=== PATIENT | male | born 1975 | race Caucasian/White ===

== ENCOUNTER 2016-10-01 00:26 | Emergency (ER) | payer OTHER ==
[~2016-10-01 00:26] MED LIST: CVS20TAB PO; LOSA50TA20 PO
--- NOTE | 2016-10-01 01:38 | EDDOCDS ---
Nurse's Notes [facility] Name: Spencer Dejesus Age: 41 yrs Sex: Male : 1975 Arrival Date: 10/01/2016 Time: 00:26 Bed I8 / 16 Private MD: Diagnosis: Diffuse otitis externa, left ear Presentation: 10/01 00:34 Presenting complaint: Patient states: Left ear pain that began 48 hours ago, pt. was lf1 seen in an ED in [place] an diagnosed with an ear infection and given Amoxicillin and CiproDex. Pt. reports that pain is worse today and feel completely swollen at this time. Decreased hearing out of left ear and swelling to neck just below ear. Adult Sepsis Screening: The patient does not have new or worsening altered mentation. Patient's respiratory rate is less than 22. Systolic blood pressure is greater than 100. Patient has a qSOFA score of 0- Negative Sepsis Screen. Suicide/Homicide risk assessment- the patient denies having any suicidal and/or homicidal ideations and does not present with any other emotional, behavioral or mental health complaints. Status: Patient is not a director agricultural services or dependent. Transition of care: patient was not received from another setting of care. 00:34 Acuity: MAGED Level 3 lf1 00:34 Method Of Arrival: Walkin/Carried/Asstd lf1 Triage Assessment: 00:40 General: Appears uncomfortable, Behavior is cooperative. Pain: Location: left ear and lf1 left jaw Pain currently is 8 out of 10 on a pain scale. Neurological: Level of Consciousness is awake, alert, Oriented to person, place, time. EENT: swelling to left ear. Respiratory: Respiratory effort is even, unlabored. GI: Denies nausea, vomiting. Historical: - Allergies: No known drug Allergies; - Home Meds: 1. Cozaar 10 mg Oral once daily for Hypertension 2. amoxicillin 500 mg Oral cap 3 times per day 3. Ciprodex ear drops four times a day - PMHx: Hypertension; - PSHx: left shoulder; - Social history: Smoking status: Patient states was never smoker of tobacco. No barriers to communication noted, The patient speaks fluent Lebanese, Speaks appropriately for age, Preferred Language: Lebanese. - Family history: No immediate family members are acutely ill. - : The pt / caregiver states he / she is not on anticoagulants. Home medication list is obtained from the patient. - Exposure Risk Screening:: None identified. Screenin:35 Screening information is obtained from the patient. Fall risk: No risks identified. mv5 Assistance ADL's: requires no assistance with activities of daily living. Abuse/DV Screen: The patient / caregiver reports he/she is: not in a situation that causes fear, pain or injury. Nutritional screening: No deficits noted. Advance Directives: There is no active DNR order. home support is adequate. Assessment: 01:27 General: Appears uncomfortable, Behavior is cooperative, pleasant. mv5 01:35 Pain: Location: left ear. Cardiovascular: No deficits noted. Respiratory: No deficits mv5 noted. Derm: Skin is pink, warm & dry. Vital Signs: 00:33 BP 172 / 85; Pulse 116; Resp 18; Temp 100.0(O); Pulse Ox 98% on R/A; Weight 111.13 kg lf1 (R); Height 6 ft. 5 in. (195.58 cm) (R); Pain 8/10; 00:33 Body Mass Index 29.05 (111.13 kg, 195.58 cm) 1 Vitals: 00:33 Log In Time: October 01, 2016 at 00:27. lf1 ED Course: 00:28 Patient visited by Arpita Woody. jp5 00:28 Patient moved to Waiting jp5 00:31 Patient moved to Triage 2 lf1 00:32 Patient visited by Luz Malhotra,PRASHANT. lf1 00:38 Triage Initiated lf1 00:42 Kathia Hernandez,PRASHANT is Primary Nurse. lf1 00:42 Patient moved to 9 lf1 00:43 Primary Nurse role handed off by Kathia Hernandez RN cf2 00:43 Sena Harding,RN is Primary Nurse. cf2 00:43 Patient visited by Sena Harding,PRASHANT. cf2 00:43 Patient moved to I8 / 16 cz 00:44 Sena Harding,PRASHANT is Primary Nurse. cf2 00:44 Patient visited by Sena Harding,PRASHANT. cf2 00:45 Chaparrita Hood MD is Attending Physician. fg 00:45 Patient visited by Chaparrita Hood MD. fg 01:04 Kody Dorsey is Referral Physician. fg 01:04 Little, Jorge L Trivedi is Referral Physician. fg 01:16 Marina Padron,RN is Primary Nurse. mv5 01:33 [facility] Payment Agreement was scanned into [employer] and attached to record. hs2 01:35 The patient / caregiver is instructed regarding the plan of care and ED course. mv5 01:35 No IV's were initiated during this patient's visit. No procedures done that require mv5 assistance. Administered Medications: 01:22 Not Given (med unavailablee): Antipyrine-Benzocaine Drops 5.4 %-1.4 % 2 drps Otic in mv5 left ear once Order Results: There are currently no results for this order. Outcome: 01:05 Discharge ordered by Provider. fg 01:35 Discharge Assessment: Patient awake, alert and oriented x 3. No cognitive and/or mv5 functional deficits noted. Patient verbalized understanding of disposition instructions. patient administered narcotics - no. The following High Risk Discharge criteria are identified: None. Condition: stable. Discharge instructions given to patient, Demonstrated understanding of Pt was receptive of discharge instructions/ teaching. Prescriptions given X 1. No special radiology studies were completed. Property sent home with patient. 01:37 Patient left the ED. mv5 Signatures: Darrell Ariza, RN RN Luz Burgess,RN RN lf1 Arpita Woody 5 Chaparrita Hood MD MD fg Stanton, Hillary, [facility] Reg hs2 Sena Harding,RN RN 2 Marina Padron,RN RN mv5 MTDD
--- NOTE | 2016-10-01 01:38 | EDDOCDS ---
Physician Documentation [facility] Name: Spencer Dejesus Age: 41 yrs Sex: Male : 1975 Arrival Date: 10/01/2016 Time: 00:26 Bed I8 / 16 Private MD: Disposition: 10/01/16 01:05 Discharged to Home/Self Care. Impression: Diffuse otitis externa, left ear. - Condition is Stable. - Discharge Instructions: Otitis Externa, [id number]. - Prescriptions for Cipro 500 mg Oral Tablet - take 1 tablet by ORAL route every 12 hours; 14 tablet. - Medication Reconciliation, Local Pharmacy Hours form. - Follow up: Kody Dorsey; When: Call to arrange an appointment; Reason: Continuance of care. Follow up: Jorge L Little; When: Call to arrange an appointment; Reason: Continuance of care. - Problem is an ongoing problem. - Symptoms are unchanged. Historical: - Allergies: No known drug Allergies; - Home Meds: 1. Cozaar 10 mg Oral once daily for Hypertension 2. amoxicillin 500 mg Oral cap 3 times per day 3. Ciprodex ear drops four times a day - PMHx: Hypertension; - PSHx: left shoulder; - Social history: Smoking status: Patient states was never smoker of tobacco. No barriers to communication noted, The patient speaks fluent Turkish, Speaks appropriately for age, Preferred Language: Turkish. - Family history: No immediate family members are acutely ill. - : The pt / caregiver states he / she is not on anticoagulants. Home medication list is obtained from the patient. - Exposure Risk Screening:: None identified. Vital Signs: 10/01 00:33 BP 172 / 85; Pulse 116; Resp 18; Temp 100.0(O); Pulse Ox 98% on R/A; Weight 111.13 kg / lf1 245 lbs (R); Height 6 ft. 5 in. (195.58 cm) (R); Pain 8/10; 00:33 Body Mass Index 29.05 (111.13 kg, 195.58 cm) lf1 MDM: 01:03 Antipyrine-Benzocaine Drops 5.4 %-1.4 % 2 drps Otic in left ear once ordered. fg 01:14 Financial registration complete. hs2 01:33 [facility] Payment Agreement was scanned into [employer] and attached to record. hs2 Administered Medications: 01:22 Not Given (med unavailablee): Antipyrine-Benzocaine Drops 5.4 %-1.4 % 2 drps Otic in mv5 left ear once Signatures: Luz Malhotra,RN RN lf1 Chaparrita Hood MD MD Sarah Shaffer, Reg Reg hs2 Marina PadronRN RN mv5 The chart was reviewed and I authenticate all verbal orders and agree with the evaluation and treatment provided.Corrections: (The following items were deleted from the chart) 01:30 01:03 Misc. Nursing Order ordered. fg cz Attachments: 01:33 [facility] [place] Agreement hs2 MTDD
--- NOTE | 2016-10-03 02:38 | EDDOCDS ---
Physician Documentation [facility] Name: Spencer Dejesus Age: 41 yrs Sex: Male : 1975 Arrival Date: 10/01/2016 Time: 00:26 Bed I8 / 16 Private MD: Disposition: 10/01/16 01:05 Discharged to Home/Self Care. Impression: Diffuse otitis externa, left ear. - Condition is Stable. - Discharge Instructions: Otitis Externa, [id number]. - Prescriptions for Cipro 500 mg Oral Tablet - take 1 tablet by ORAL route every 12 hours; 14 tablet. - Medication Reconciliation, Local Pharmacy Hours form. - Follow up: Kody Dorsey; When: Call to arrange an appointment; Reason: Continuance of care. Follow up: Jorge L Little; When: Call to arrange an appointment; Reason: Continuance of care. - Problem is an ongoing problem. - Symptoms are unchanged. Historical: - Allergies: No known drug Allergies; - Home Meds: 1. Cozaar 10 mg Oral once daily for Hypertension 2. amoxicillin 500 mg Oral cap 3 times per day 3. Ciprodex ear drops four times a day - PMHx: Hypertension; - PSHx: left shoulder; - Social history: Smoking status: Patient states was never smoker of tobacco. No barriers to communication noted, The patient speaks fluent Belarusian, Speaks appropriately for age, Preferred Language: Belarusian. - Family history: No immediate family members are acutely ill. - : The pt / caregiver states he / she is not on anticoagulants. Home medication list is obtained from the patient. - Exposure Risk Screening:: None identified. Vital Signs: 10/01 00:33 BP 172 / 85; Pulse 116; Resp 18; Temp 100.0(O); Pulse Ox 98% on R/A; Weight 111.13 kg / lf1 245 lbs (R); Height 6 ft. 5 in. (195.58 cm) (R); Pain 8/10; 00:33 Body Mass Index 29.05 (111.13 kg, 195.58 cm) lf1 MDM: 01:03 Antipyrine-Benzocaine Drops 5.4 %-1.4 % 2 drps Otic in left ear once ordered. fg 01:14 Financial registration complete. hs2 01:33 COUNTS INCLUDE 234 BEDS AT THE [facility] Payment Agreement was scanned into [employer] and attached to record. hs2 21:31 T-Sheet-- Draft Copy was scanned into [employer] and attached to record. klr Administered Medications: :22 Not Given (med unavailablee): Antipyrine-Benzocaine Drops 5.4 %-1.4 % 2 drps Otic in mv5 left ear once Signatures: Luz MalhotraRN RN lf1 Chaparrita Hood MD MD Sarah Shaffer, Reg Reg hs2 Ratna Camarena klr Marina Padron,RN RN mv5 The chart was reviewed and I authenticate all verbal orders and agree with the evaluation and treatment provided.Corrections: (The following items were deleted from the chart) 01:30 01:03 Misc. Nursing Order ordered. octavio cz Attachments: 01:33 COUNTS INCLUDE 234 BEDS AT THE [facility] Payment Agreement hs2 21:31 T-Sheet-- Draft Copy klr Chart Complete MTDD
--- NOTE | 2016-10-03 02:38 | EDDOCDS ---
Nurse's Notes [facility] Name: Spencer Dejesus Age: 41 yrs Sex: Male : 1975 Arrival Date: 10/01/2016 Time: 00:26 Bed I8 / 16 Private MD: Diagnosis: Diffuse otitis externa, left ear Presentation: 10/01 00:34 Presenting complaint: Patient states: Left ear pain that began 48 hours ago, pt. was lf1 seen in an ED in [place] an diagnosed with an ear infection and given Amoxicillin and CiproDex. Pt. reports that pain is worse today and feel completely swollen at this time. Decreased hearing out of left ear and swelling to neck just below ear. Adult Sepsis Screening: The patient does not have new or worsening altered mentation. Patient's respiratory rate is less than 22. Systolic blood pressure is greater than 100. Patient has a qSOFA score of 0- Negative Sepsis Screen. Suicide/Homicide risk assessment- the patient denies having any suicidal and/or homicidal ideations and does not present with any other emotional, behavioral or mental health complaints. Status: Patient is not a business services intern or dependent. Transition of care: patient was not received from another setting of care. 00:34 Acuity: MAGED Level 3 lf1 00:34 Method Of Arrival: Walkin/Carried/Asstd lf1 Triage Assessment: 00:40 General: Appears uncomfortable, Behavior is cooperative. Pain: Location: left ear and lf1 left jaw Pain currently is 8 out of 10 on a pain scale. Neurological: Level of Consciousness is awake, alert, Oriented to person, place, time. EENT: swelling to left ear. Respiratory: Respiratory effort is even, unlabored. GI: Denies nausea, vomiting. Historical: - Allergies: No known drug Allergies; - Home Meds: 1. Cozaar 10 mg Oral once daily for Hypertension 2. amoxicillin 500 mg Oral cap 3 times per day 3. Ciprodex ear drops four times a day - PMHx: Hypertension; - PSHx: left shoulder; - Social history: Smoking status: Patient states was never smoker of tobacco. No barriers to communication noted, The patient speaks fluent Sierra Leonean, Speaks appropriately for age, Preferred Language: Sierra Leonean. - Family history: No immediate family members are acutely ill. - : The pt / caregiver states he / she is not on anticoagulants. Home medication list is obtained from the patient. - Exposure Risk Screening:: None identified. Screenin:35 Screening information is obtained from the patient. Fall risk: No risks identified. mv5 Assistance ADL's: requires no assistance with activities of daily living. Abuse/DV Screen: The patient / caregiver reports he/she is: not in a situation that causes fear, pain or injury. Nutritional screening: No deficits noted. Advance Directives: There is no active DNR order. home support is adequate. Assessment: 01:27 General: Appears uncomfortable, Behavior is cooperative, pleasant. mv5 01:35 Pain: Location: left ear. Cardiovascular: No deficits noted. Respiratory: No deficits mv5 noted. Derm: Skin is pink, warm & dry. Vital Signs: 00:33 BP 172 / 85; Pulse 116; Resp 18; Temp 100.0(O); Pulse Ox 98% on R/A; Weight 111.13 kg lf1 (R); Height 6 ft. 5 in. (195.58 cm) (R); Pain 8/10; 00:33 Body Mass Index 29.05 (111.13 kg, 195.58 cm) 1 Vitals: 00:33 Log In Time: October 01, 2016 at 00:27. lf1 ED Course: 00:28 Patient visited by Arpita Woody. jp5 00:28 Patient moved to Waiting jp5 00:31 Patient moved to Triage 2 lf1 00:32 Patient visited by Luz Malhotra,PRASHANT. lf1 00:38 Triage Initiated lf1 00:42 Kathia Hernandez,PRASHANT is Primary Nurse. lf1 00:42 Patient moved to 9 lf1 00:43 Primary Nurse role handed off by Kathia Hernandez RN cf2 00:43 Sena Harding,RN is Primary Nurse. cf2 00:43 Patient visited by Sena Harding,PRASHANT. cf2 00:43 Patient moved to I8 / 16 cz 00:44 Sena Harding,PRASHANT is Primary Nurse. cf2 00:44 Patient visited by Sena Harding,PRASHANT. cf2 00:45 Chaparrita Hood MD is Attending Physician. fg 00:45 Patient visited by Chaparrita Hood MD. fg 01:04 Kody Dorsey is Referral Physician. fg 01:04 Ovi Littleed Kylejose alfredo Trivedi is Referral Physician. fg 01:16 Marina Padron,RN is Primary Nurse. mv5 01:33 [facility] Payment Agreement was scanned into [employer] and attached to record. hs2 01:35 The patient / caregiver is instructed regarding the plan of care and ED course. mv5 01:35 No IV's were initiated during this patient's visit. No procedures done that require mv5 assistance. 21:31 T-Sheet-- Draft Copy was scanned into [employer] and attached to record. klr Administered Medications: 01:22 Not Given (med unavailablee): Antipyrine-Benzocaine Drops 5.4 %-1.4 % 2 drps Otic in mv5 left ear once Order Results: There are currently no results for this order. Outcome: 01:05 Discharge ordered by Provider. fg 01:35 Discharge Assessment: Patient awake, alert and oriented x 3. No cognitive and/or mv5 functional deficits noted. Patient verbalized understanding of disposition instructions. patient administered narcotics - no. The following High Risk Discharge criteria are identified: None. Condition: stable. Discharge instructions given to patient, Demonstrated understanding of Pt was receptive of discharge instructions/ teaching. Prescriptions given X 1. No special radiology studies were completed. Property sent home with patient. 01:37 Patient left the ED. mv5 Signatures: Darrell Ariza, RN RN Luz Malhotra,RN RN lf1 Arpita Woody jp5 Chaparrita Hood MD MD Sarah Shaffer, Reg Reg hs2 Ratna Camarena r Sena Harding,RN RN 2 Marina Padron,RN RN mv5 Chart Complete MTDD
--- NOTE | 2016-10-03 02:38 | EDDOCDS ---
Physician Documentation [facility] Name: Spencer Dejesus Age: 41 yrs Sex: Male : 1975 Arrival Date: 10/01/2016 Time: 00:26 Bed I8 / 16 Private MD: Disposition: 10/01/16 01:05 Discharged to Home/Self Care. Impression: Diffuse otitis externa, left ear. - Condition is Stable. - Discharge Instructions: Otitis Externa, [id number]. - Prescriptions for Cipro 500 mg Oral Tablet - take 1 tablet by ORAL route every 12 hours; 14 tablet. - Medication Reconciliation, Local Pharmacy Hours form. - Follow up: Kody Dorsey; When: Call to arrange an appointment; Reason: Continuance of care. Follow up: Jorge L Little; When: Call to arrange an appointment; Reason: Continuance of care. - Problem is an ongoing problem. - Symptoms are unchanged. Historical: - Allergies: No known drug Allergies; - Home Meds: 1. Cozaar 10 mg Oral once daily for Hypertension 2. amoxicillin 500 mg Oral cap 3 times per day 3. Ciprodex ear drops four times a day - PMHx: Hypertension; - PSHx: left shoulder; - Social history: Smoking status: Patient states was never smoker of tobacco. No barriers to communication noted, The patient speaks fluent Greek, Speaks appropriately for age, Preferred Language: Greek. - Family history: No immediate family members are acutely ill. - : The pt / caregiver states he / she is not on anticoagulants. Home medication list is obtained from the patient. - Exposure Risk Screening:: None identified. Vital Signs: 10/01 00:33 BP 172 / 85; Pulse 116; Resp 18; Temp 100.0(O); Pulse Ox 98% on R/A; Weight 111.13 kg / lf1 245 lbs (R); Height 6 ft. 5 in. (195.58 cm) (R); Pain 8/10; 00:33 Body Mass Index 29.05 (111.13 kg, 195.58 cm) lf1 MDM: 01:03 Antipyrine-Benzocaine Drops 5.4 %-1.4 % 2 drps Otic in left ear once ordered. fg 01:14 Financial registration complete. hs2 01:33 [facility] Payment Agreement was scanned into [employer] and attached to record. hs2 21:31 T-Sheet-- Draft Copy was scanned into [employer] and attached to record. klr Administered Medications: :22 Not Given (med unavailablee): Antipyrine-Benzocaine Drops 5.4 %-1.4 % 2 drps Otic in mv5 left ear once Signatures: Luz MalhotraRN RN lf1 Chaparrita Hood MD MD Sarah Shaffer, Reg Reg hs2 Ratna Camarena klr Marina Padron,RN RN mv5 The chart was reviewed and I authenticate all verbal orders and agree with the evaluation and treatment provided.Corrections: (The following items were deleted from the chart) 01:30 01:03 Misc. Nursing Order ordered. octavio cz Attachments: 01:33 [facility] Payment Agreement hs2 21:31 T-Sheet-- Draft Copy klr Chart Complete MTDD
== END 2016-10-01 01:37 | disposition home or self-care (01) ==
LOC: M ED 00:26
DX: H60.90 Unspecified otitis externa, unspecified ear (principal); I10 Essential (primary) hypertension; Z79.899 Other long term (current) drug therapy

== ENCOUNTER 2016-10-02 20:01 | Emergency (ER) | payer OTHER ==
--- NOTE | 2016-10-02 20:59 | EDDOCDS ---
Nurse's Notes [facility] Name: Spencer Dejesus Age: 41 yrs Sex: Male : 1975 Arrival Date: 10/02/2016 Time: 20:01 Bed TR7 Private MD: Jorge L Little Diagnosis: Acute actinic otitis externa, left ear Presentation: 10/02 20:09 Presenting complaint: Patient states: Seen here 2 days ago for ear infection. Unable to jo3 get drops in ear due to swelling. Adult Sepsis Screening: The patient does not have new or worsening altered mentation. Patient's respiratory rate is less than 22. Systolic blood pressure is greater than 100. Patient has a qSOFA score of 0- Negative Sepsis Screen. Suicide/Homicide risk assessment- the patient denies having any suicidal and/or homicidal ideations and does not present with any other emotional, behavioral or mental health complaints. Status: Patient is not a certified appliance service technician or dependent. Transition of care: patient was not received from another setting of care. 20:09 Acuity: MAGED Level 4 jo3 20:09 Method Of Arrival: Walkin/Carried/Asstd jo3 Triage Assessment: 20:12 General: Appears in no apparent distress, comfortable, Behavior is appropriate for age, jo3 cooperative, pleasant. Pain: Pain currently is 6 out of 10 on a pain scale. At worst was 8 out of 10 on a pain scale. HIV screening NA for this visit Offered previously. Neurological: Level of Consciousness is awake, alert, Oriented to person, place, time. Respiratory: Airway is patent Respiratory effort is even, unlabored. Derm: Skin is pink, warm & dry. Historical: - Allergies: No known drug Allergies; - Home Meds: 1. ciprodex ear drops four times a day 2. Cozaar 10 mg Oral once daily for Hypertension 3. Cipro 500 mg Oral tab 1 tab every 12 hours - PMHx: Hypertension; - PSHx: left shoulder; - Social history: Smoking status: Patient states was never smoker of tobacco. No barriers to communication noted, The patient speaks fluent Afghan, Speaks appropriately for age. - Family history: No immediate family members are acutely ill. - : The pt / caregiver states he / she is not on anticoagulants. Home medication list is obtained from the patient. - Exposure Risk Screening:: None identified. Screenin:57 Screening information is obtained from the patient. Fall risk: No risks identified. mb9 Assistance ADL's: requires no assistance with activities of daily living. Abuse/DV Screen: The patient / caregiver reports he/she is: not in a situation that causes fear, pain or injury. Nutritional screening: No deficits noted. Advance Directives: There is no active DNR order. home support is adequate. Assessment: 20:52 General: Appears in no apparent distress, Behavior is appropriate for age, cooperative. mb9 Respiratory: Airway is patent Respiratory effort is even, unlabored. Vital Signs: 20:03 BP 154 / 97; Pulse 96; Resp 18; Temp 98.4; Pulse Ox 96% ; Weight 111.13 kg; Height 6 jlm ft. 5 in. (195.58 cm); Pain 8/10; 20:03 Body Mass Index 29.05 (111.13 kg, 195.58 cm) [facility] Vitals: 20:03 Log In Time: October 02, 2016 at 20:03. [facility] ED Course: 20:02 Patient visited by Nickie Franco, Housing Case Manager. [facility] 20:02 Jorge L Little is Private Physician. jl 20:02 Patient moved to Waiting jl 20:04 Patient moved to Pre RCE jlm 20:11 Triage Initiated jo3 20:13 Patient visited by Kathryn Sharma,PRASHANT. jo3 20:21 [facility] ke 20:21 Patient visited by Wero Gilbert FNP. ke 20:21 Patient visited by Wero Gilbert FNP. ke 20:21 Patient moved to I10 / 23 km 20:29 Jorge L Little is Referral Physician. ke 20:52 Patient moved to TR7 mb9 20:53 [facility] Payment Agreement was scanned into [employer] and attached to record. kf3 20:57 The patient / caregiver is instructed regarding the plan of care and ED course. mb9 20:57 No IV's were initiated during this patient's visit. No procedures done that require mb9 assistance. Order Results: There are currently no results for this order. Outcome: 20:29 Discharge ordered by Provider. ke 20:57 Discharge Assessment: Patient awake, alert and oriented x 3. No cognitive and/or mb9 functional deficits noted. Patient verbalized understanding of disposition instructions. patient administered narcotics - no. The following High Risk Discharge criteria are identified: None. Discharged to home ambulatory. Condition: good Condition: stable Condition: improved. Discharge instructions given to patient, Instructed on discharge instructions, follow up and referral plans. medication usage, Demonstrated understanding of instructions, medications, Patient was not receptive of discharge instructions. Prescriptions given X. No special radiology studies were completed. Property :Personal belongings accompany Pt. 20:58 Patient left the ED. mb9 Signatures: Fabi Valle, RN RN kmg1 Wero Gilbert, INSTRUCTOR MODELING INSTRUCTOR MODELING Kathryn ValeraRN RN jo3 Wily Gonzalez, Reg Reg kf3 Nickie Franco, Housing Case Manager Unit Que Morrell,RN RN mb9 [facility]
--- NOTE | 2016-10-02 20:59 | EDDOCDS ---
Physician Documentation [facility] Name: Spencer Dejesus Age: 41 yrs Sex: Male : 1975 Arrival Date: 10/02/2016 Time: 20:01 Bed TR7 Private MD: Jorge L Little Disposition: 10/02/16 20:29 Discharged to Home/Self Care. Impression: Acute actinic otitis externa, left ear. - Condition is Stable. - Discharge Instructions: Ear Drops, Adult, Otitis Externa. - Medication Reconciliation, Local Pharmacy Hours form. - Follow up: Jorge L Little; When: 4 - 5 days; Reason: Recheck today's complaints, Continuance of care. - Problem is an ongoing problem. - Symptoms are unchanged. Historical: - Allergies: No known drug Allergies; - Home Meds: 1. ciprodex ear drops four times a day 2. Cozaar 10 mg Oral once daily for Hypertension 3. Cipro 500 mg Oral tab 1 tab every 12 hours - PMHx: Hypertension; - PSHx: left shoulder; - Social history: Smoking status: Patient states was never smoker of tobacco. No barriers to communication noted, The patient speaks fluent Malay, Speaks appropriately for age. - Family history: No immediate family members are acutely ill. - : The pt / caregiver states he / she is not on anticoagulants. Home medication list is obtained from the patient. - Exposure Risk Screening:: None identified. Vital Signs: 10/02 20:03 BP 154 / 97; Pulse 96; Resp 18; Temp 98.4; Pulse Ox 96% ; Weight 111.13 kg / 245 lbs; jlm Height 6 ft. 5 in. (195.58 cm); Pain 8/10; 20:03 Body Mass Index 29.05 (111.13 kg, 195.58 cm) [facility] MDM: 20:41 Financial registration complete. kf3 20:53 [facility] Payment Agreement was scanned into [employer] and attached to record. kf3 Signatures: Wero Gilbert, SERVICE PLANNER SERVICE PLANNER Kathryn ValeraRN RN jo3 Wily Gonzalez, Reg Reg kf3 Que Pena,RN RN mb9 The chart was reviewed and I authenticate all verbal orders and agree with the evaluation and treatment provided.Attachments: 20:53 [facility] Payment Agreement kf3 MTDD
--- NOTE | 2016-10-04 21:58 | EDDOCDS ---
Physician Documentation [facility] Name: Spencer Dejesus Age: 41 yrs Sex: Male : 1975 Arrival Date: 10/02/2016 Time: 20:01 Bed TR7 Private MD: Jorge L Little Disposition: 10/02/16 20:29 Discharged to Home/Self Care. Impression: Acute actinic otitis externa, left ear. - Condition is Stable. - Discharge Instructions: Ear Drops, Adult, Otitis Externa. - Medication Reconciliation, Local Pharmacy Hours form. - Follow up: Jorge L Little; When: 4 - 5 days; Reason: Recheck today's complaints, Continuance of care. - Problem is an ongoing problem. - Symptoms are unchanged. Historical: - Allergies: No known drug Allergies; - Home Meds: 1. ciprodex ear drops four times a day 2. Cozaar 10 mg Oral once daily for Hypertension 3. Cipro 500 mg Oral tab 1 tab every 12 hours - PMHx: Hypertension; - PSHx: left shoulder; - Social history: Smoking status: Patient states was never smoker of tobacco. No barriers to communication noted, The patient speaks fluent Thai, Speaks appropriately for age. - Family history: No immediate family members are acutely ill. - : The pt / caregiver states he / she is not on anticoagulants. Home medication list is obtained from the patient. - Exposure Risk Screening:: None identified. Vital Signs: 10/02 20:03 BP 154 / 97; Pulse 96; Resp 18; Temp 98.4; Pulse Ox 96% ; Weight 111.13 kg / 245 lbs; jlm Height 6 ft. 5 in. (195.58 cm); Pain 8/10; 20:03 Body Mass Index 29.05 (111.13 kg, 195.58 cm) jl MDM: 20:41 Financial registration complete. kf3 20:53 [facility] Payment Agreement was scanned into [employer] and attached to record. 10/03 08:57 T-Sheet-- Draft Copy was scanned into [employer] and attached to record. [facility] Signatures: Wero Gilbert, LIVE STUDY MANAGER LIVE STUDY MANAGER Kathryn ValeraRN RN jo3 Wily Gonzalez, Reg Reg kf3 Que Pena RN RN mb9 Helga Petit The chart was reviewed and I authenticate all verbal orders and agree with the evaluation and treatment provided.Attachments: 10/02 20:53 [facility] Payment Agreement kf3 10/03 08:57 T-Sheet-- Draft Copy [facility] Chart Complete MTDD
--- NOTE | 2016-10-04 21:58 | EDDOCDS ---
Physician Documentation [facility] Name: Spencer Dejesus Age: 41 yrs Sex: Male : 1975 Arrival Date: 10/02/2016 Time: 20:01 Bed TR7 Private MD: Jorge L Little Disposition: 10/02/16 20:29 Discharged to Home/Self Care. Impression: Acute actinic otitis externa, left ear. - Condition is Stable. - Discharge Instructions: Ear Drops, Adult, Otitis Externa. - Medication Reconciliation, Local Pharmacy Hours form. - Follow up: Jorge L Little; When: 4 - 5 days; Reason: Recheck today's complaints, Continuance of care. - Problem is an ongoing problem. - Symptoms are unchanged. Historical: - Allergies: No known drug Allergies; - Home Meds: 1. ciprodex ear drops four times a day 2. Cozaar 10 mg Oral once daily for Hypertension 3. Cipro 500 mg Oral tab 1 tab every 12 hours - PMHx: Hypertension; - PSHx: left shoulder; - Social history: Smoking status: Patient states was never smoker of tobacco. No barriers to communication noted, The patient speaks fluent Kinyarwanda, Speaks appropriately for age. - Family history: No immediate family members are acutely ill. - : The pt / caregiver states he / she is not on anticoagulants. Home medication list is obtained from the patient. - Exposure Risk Screening:: None identified. Vital Signs: 10/02 20:03 BP 154 / 97; Pulse 96; Resp 18; Temp 98.4; Pulse Ox 96% ; Weight 111.13 kg / 245 lbs; jlm Height 6 ft. 5 in. (195.58 cm); Pain 8/10; 20:03 Body Mass Index 29.05 (111.13 kg, 195.58 cm) jl MDM: 20:41 Financial registration complete. kf3 20:53 [facility] Payment Agreement was scanned into [employer] and attached to record. 10/03 08:57 T-Sheet-- Draft Copy was scanned into [employer] and attached to record. [facility] Signatures: Wero Gilbert, SURGICAL DEVICE SALES REPRESENTATIVE SURGICAL DEVICE SALES REPRESENTATIVE Kathryn ValeraRN RN jo3 Wily Gonzalez, Reg Reg kf3 Que Pena RN RN mb9 Helga Petit The chart was reviewed and I authenticate all verbal orders and agree with the evaluation and treatment provided.Attachments: 10/02 20:53 [facility] Payment Agreement kf3 10/03 08:57 T-Sheet-- Draft Copy [facility] Chart Complete MTDD
--- NOTE | 2016-10-04 21:58 | EDDOCDS ---
Nurse's Notes [facility] Name: Spencer Dejesus Age: 41 yrs Sex: Male : 1975 Arrival Date: 10/02/2016 Time: 20:01 Bed TR7 Private MD: Jorge L Little Diagnosis: Acute actinic otitis externa, left ear Presentation: 10/02 20:09 Presenting complaint: Patient states: Seen here 2 days ago for ear infection. Unable to jo3 get drops in ear due to swelling. Adult Sepsis Screening: The patient does not have new or worsening altered mentation. Patient's respiratory rate is less than 22. Systolic blood pressure is greater than 100. Patient has a qSOFA score of 0- Negative Sepsis Screen. Suicide/Homicide risk assessment- the patient denies having any suicidal and/or homicidal ideations and does not present with any other emotional, behavioral or mental health complaints. Status: Patient is not a supervisor home restoration service or dependent. Transition of care: patient was not received from another setting of care. 20:09 Acuity: MAGED Level 4 jo3 20:09 Method Of Arrival: Walkin/Carried/Asstd jo3 Triage Assessment: 20:12 General: Appears in no apparent distress, comfortable, Behavior is appropriate for age, jo3 cooperative, pleasant. Pain: Pain currently is 6 out of 10 on a pain scale. At worst was 8 out of 10 on a pain scale. HIV screening NA for this visit Offered previously. Neurological: Level of Consciousness is awake, alert, Oriented to person, place, time. Respiratory: Airway is patent Respiratory effort is even, unlabored. Derm: Skin is pink, warm & dry. Historical: - Allergies: No known drug Allergies; - Home Meds: 1. ciprodex ear drops four times a day 2. Cozaar 10 mg Oral once daily for Hypertension 3. Cipro 500 mg Oral tab 1 tab every 12 hours - PMHx: Hypertension; - PSHx: left shoulder; - Social history: Smoking status: Patient states was never smoker of tobacco. No barriers to communication noted, The patient speaks fluent Georgian, Speaks appropriately for age. - Family history: No immediate family members are acutely ill. - : The pt / caregiver states he / she is not on anticoagulants. Home medication list is obtained from the patient. - Exposure Risk Screening:: None identified. Screenin:57 Screening information is obtained from the patient. Fall risk: No risks identified. mb9 Assistance ADL's: requires no assistance with activities of daily living. Abuse/DV Screen: The patient / caregiver reports he/she is: not in a situation that causes fear, pain or injury. Nutritional screening: No deficits noted. Advance Directives: There is no active DNR order. home support is adequate. Assessment: 20:52 General: Appears in no apparent distress, Behavior is appropriate for age, cooperative. mb9 Respiratory: Airway is patent Respiratory effort is even, unlabored. Vital Signs: 20:03 BP 154 / 97; Pulse 96; Resp 18; Temp 98.4; Pulse Ox 96% ; Weight 111.13 kg; Height 6 jlm ft. 5 in. (195.58 cm); Pain 8/10; 20:03 Body Mass Index 29.05 (111.13 kg, 195.58 cm) [facility] Vitals: 20:03 Log In Time: October 02, 2016 at 20:03. [facility] ED Course: 20:02 Patient visited by Nickie Franco, Assisted Living Coordinator. [facility] 20:02 Jorge L Little is Private Physician. jl 20:02 Patient moved to Waiting jlm 20:04 Patient moved to Pre RCE jlm 20:11 Triage Initiated jo3 20:13 Patient visited by Kathryn Sharma,PRASHANT. jo3 20:21 [facility] ke 20:21 Patient visited by Wero Gilbert FNP. ke 20:21 Patient visited by Wero Gilbert FNP. ke 20:21 Patient moved to I10 / 23 km 20:29 Jorge L Little is Referral Physician. ke 20:52 Patient moved to TR7 mb9 20:53 [facility] [place] Agreement was scanned into quitchen and attached to record. kf3 20:57 The patient / caregiver is instructed regarding the plan of care and ED course. mb9 20:57 No IV's were initiated during this patient's visit. No procedures done that require mb9 assistance. 10/03 08:57 T-Sheet-- Draft Copy was scanned into quitchen and attached to record. [facility] Order Results: There are currently no results for this order. Outcome: 10/02 20:29 Discharge ordered by Provider. blake 20:57 Discharge Assessment: Patient awake, alert and oriented x 3. No cognitive and/or mb9 functional deficits noted. Patient verbalized understanding of disposition instructions. patient administered narcotics - no. The following High Risk Discharge criteria are identified: None. Discharged to home ambulatory. Condition: good Condition: stable Condition: improved. Discharge instructions given to patient, Instructed on discharge instructions, follow up and referral plans. medication usage, Demonstrated understanding of instructions, medications, Patient was not receptive of discharge instructions. Prescriptions given X. No special radiology studies were completed. Property :Personal belongings accompany Pt. 20:58 Patient left the ED. mb9 Signatures: Fabi Valle, RN RN kmg1 Wero Gilbert, GOLF CLUB WEIGHTER GOLF CLUB WEIGHTER Kathryn Valera,RN RN jo3 Wily Gonzalez, Reg Reg kf3 Nickie Franco, Assisted Living Coordinator Unit Que Morrell RN RN mb9 Helga Petit Chart Complete [facility]
== END 2016-10-02 20:58 | disposition home or self-care (01) ==
LOC: M ED 20:01
DX: H60.12 Cellulitis of left external ear (principal); I10 Essential (primary) hypertension; Z79.899 Other long term (current) drug therapy

== ENCOUNTER → 2017-03-04 | Outpatient (CLI) | payer OTHER ==
[~2017-03-04] MED LIST changes: +AMOX500C PO; +PRED20TA PO
--- NOTE | 2017-03-04 07:22 | REP ---
Clinical: Hypertension . Comparison: 02/06/2016 . Technique: PA and lateral. Findings: The mediastinum and cardiac silhouette are normal. The lung taylor are clear and without acute consolidation, effusion, or pneumothorax. The skeletal structures are intact and normal. Impression: 1. No acute cardiopulmonary process. Signed by Spencer Hadley MD 03/04/2017 07:13 A
[2017-03-04 07:40] LABS: MEAN CORPUSCULAR HGB CONC 35.5 g/dl (32.0-36.5); MEAN CORPUSCULAR VOLUME 92.9 fl (80.0-96.0); RED CELL DISTRIBUTION WIDTH 13.2 % (11.5-14.5); WHITE BLOOD COUNT 4.6 K/mm3 (4.0-10.0)
[2017-03-04 08:01] LABS: ALBUMIN 3.7 GM/DL (3.2-5.2); ALBUMIN/GLOBULIN RATIO 0.93 (1.00-1.93); ALKALINE PHOSPHATASE 81 U/L (45-117); ALT/SGPT 50 U/L (12-78); ANION GAP 6 MEQ/L (8-16); AST/SGOT 20 U/L (15-37); BILIRUBIN,TOTAL 0.9 MG/DL (0.2-1.0); BLOOD UREA NITROGEN 15 MG/DL (7-18); CALCIUM LEVEL 9.2 MG/DL (8.5-10.1); CARBON DIOXIDE LEVEL 30 MEQ/L (21-32); CHLORIDE LEVEL 105 MEQ/L (98-107); CHOLESTEROL LEVEL 227 MG/DL (<200); GLOMERULAR FILTRATION RATE > 60.0 (>60); GLUCOSE, FASTING 95 MG/DL (70-105); POTASSIUM SERUM 4.5 MEQ/L (3.5-5.1); SODIUM LEVEL 141 MEQ/L (136-145); TOTAL PROTEIN 7.7 GM/DL (6.4-8.2); TRIGLYCERIDES LEVEL 127 MG/DL (<150)
--- NOTE | 2017-03-04 11:29 | ECGEPIP ---
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
== END ==
LOC: M LAB 06:28
PROVIDERS: ATTEND Family Medicine
DX: I10 Essential (primary) hypertension (principal); R53.83 Other fatigue; E03.9 Hypothyroidism, unspecified

== ENCOUNTER 2017-03-17 20:59 | Emergency (ER) | payer OTHER ==
[~2017-03-17] VITALS: Ht 195.6 cm; Wt 113.6 kg
[~2017-03-17 20:59] MED LIST changes: -AMOX500C PO; -PRED20TA PO
[2017-03-17] MEDS ORDERED: ISOVUE-370 76% 100ML VIAL (Q9967) As Ordered ONE (23:39)
[2017-03-17 23:40] LABS: BASO % 0.4 % (0.0-1.0); EOS # 0.1 K/mm3 (0.0-0.50); EOS % 1.6 % (0.0-3.0); LARGE UNSTAINED CELL # 0.1 K/mm3 (0.0-0.4); LARGE UNSTAINED CELL % 1.6 % (0.0-4.0); LYMPH # 1.9 K/mm3 (1.5-4.5); LYMPH % 31.6 % (24.0-44.0); MEAN CORPUSCULAR HEMOGLOBIN 32.4 pg (27.0-33.0); MEAN CORPUSCULAR HGB CONC 35.3 g/dl (32.0-36.5); MEAN CORPUSCULAR VOLUME 91.8 fl (80.0-96.0); MONO # 0.3 K/mm3 (0.0-0.8); MONO % 5.5 % (0.0-5.0); NEUTROPHILS # 3.6 K/mm3 (1.8-7.7); NEUTROPHILS % 59.3 % (36.0-66.0); PLATELET COUNT, AUTOMATED 274 k/mm3 (150-450); RED CELL DISTRIBUTION WIDTH 12.7 % (11.5-14.5); WHITE BLOOD COUNT 6.1 K/mm3 (4.0-10.0)
[2017-03-18 00:02] LABS: ANION GAP 8 MEQ/L (8-16); BLOOD UREA NITROGEN 18 MG/DL (7-18); CALCIUM LEVEL 9.6 MG/DL (8.5-10.1); CARBON DIOXIDE LEVEL 26 MEQ/L (21-32); CHLORIDE LEVEL 107 MEQ/L (98-107); CREATININE FOR GFR 0.98 MG/DL (0.70-1.30); GLOMERULAR FILTRATION RATE > 60.0 (>60); GLUCOSE, FASTING 89 MG/DL (70-105); POTASSIUM SERUM 4.1 MEQ/L (3.5-5.1); SODIUM LEVEL 141 MEQ/L (136-145)
--- NOTE | 2017-03-18 00:20 | REPUSA ---
CLINICAL HISTORY: Suspected abscess. TECHNIQUE: Multiple axial CT images were obtained through the neck with IV contrast material. MPR cor onal and sagittal sequences were obtained. COMMENTS: Mild bilateral tonsillar enlargement. Mildly enlarged bilateral lymph nodes the largest measuring 1.3 cm. The oropharyngeal soft tissues are normal and bilaterally symmetric. The piriform sinuses are normal. There is no supra or infraglottic laryngeal mass. The proximal trachea is normal. There is no paravertebral soft tissue mass. The salivary glands are normal. The paravertebral soft tissue space is normal. Limited images through the posterior fossa demonstrate no evidence for tonsilar herniation. Evaluation of the visualized lung apices reveals no evidence for abnormality. IMPRESSION: Mild bilateral tonsillar enlargement. Mildly enlarged lymph nodes with the largest measuring 1.3 cm. No drainable abscess formation. Thank you for your kind referral of this patient.
[2017-03-18] MEDS ORDERED: PRED20TA PO (00:43)
[2017-03-18] MEDS ORDERED: AMOX500C PO (00:43)
[2017-03-18] MEDS ORDERED: predniSONE 20 MG TAB PO ONE (00:45)
[2017-03-18] MEDS ORDERED: AMOXICILLIN 500 MG CAP PO ONE (00:45)
[2017-03-18 00:53] VITALS: BP 157/100
== END 2017-03-18 00:55 | disposition home or self-care (01) ==
LOC: M ED 20:59
DX: J03.90 Acute tonsillitis, unspecified (principal)
CPT/HCPCS: 70491; 80048; 85025; 86140; 99283; Q9967

== ENCOUNTER 2018-09-30 09:03 | Emergency (ER) | payer OTHER ==
[~2018-09-30] VITALS: Ht 195.6 cm; Wt 115.9 kg
[~2018-09-30 09:03] MED LIST changes: +AMOX500C PO; -LOSA50TA20 PO; +LOSA50TA88 PO; +PRED20TA PO
[2018-09-30] MEDS ORDERED: OLME1TAB9 PO (09:09)
[2018-09-30] MEDS ORDERED: OMEP20CA3 PO (09:09)
[2018-09-30 09:56] LABS: HEMATOCRIT 47.6 % (42.0-52.0); HEMOGLOBIN 16.2 g/dl (13.5-17.5); MEAN CORPUSCULAR HEMOGLOBIN 32.4 pg (27.0-33.0); MEAN CORPUSCULAR VOLUME 95.2 fl (80.0-96.0); PLATELET COUNT, AUTOMATED 256 10^3/uL (150-450)
[2018-09-30 09:59] LABS: BLOOD UREA NITROGEN 14 MG/DL (7-18); CALCIUM LEVEL 9.3 MG/DL (8.5-10.1); CARBON DIOXIDE LEVEL 28 MEQ/L (21-32); CHLORIDE LEVEL 104 MEQ/L (98-107); CREATININE FOR GFR 1.01 MG/DL (0.70-1.30); GLOMERULAR FILTRATION RATE > 60.0 (>60); GLUCOSE, FASTING 128 MG/DL (70-100); POTASSIUM SERUM 4.3 MEQ/L (3.5-5.1); SODIUM LEVEL 138 MEQ/L (136-145)
--- NOTE | 2018-09-30 10:08 | REP ---
RIGHT LOWER EXTREMITY DUPLEX VEINS: HISTORY: Leg pain. There are no filling defects in the deep venous system. The deep venous system is patent. 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 IMPRESSION:There is no deep venous thrombosis. Electronically Signed by Remi Murillo MD 09/30/2018 10:10 A
[2018-09-30 10:18] VITALS: BP 118/73
== END 2018-09-30 10:22 | disposition home or self-care (01) ==
LOC: M ED 09:03
DX: M79.604 Pain in right leg (principal); I10 Essential (primary) hypertension; K21.9 Gastro-esophageal reflux disease without esophagitis; Z79.899 Other long term (current) drug therapy

== ENCOUNTER → 2019-09-05 | Outpatient (CLI) | payer OTHER ==
[~2019-09-05] MED LIST changes: -CVS20TAB PO; +OLME1TAB9 PO; +OMEP1CAP73 PO; +OMEP20TA9 PO
[2019-09-05 11:34] LABS: HEMATOCRIT 42.4 % (42.0-52.0); HEMOGLOBIN 14.8 g/dl (13.5-17.5); MEAN CORPUSCULAR HEMOGLOBIN 32.7 pg (27.0-33.0); MEAN CORPUSCULAR HGB CONC 34.9 g/dl (32.0-36.5); MEAN CORPUSCULAR VOLUME 93.8 fl (80.0-96.0); PLATELET COUNT, AUTOMATED 232 10^3/uL (150-450); RED BLOOD COUNT 4.52 10^6/uL (4.30-6.10); WHITE BLOOD COUNT 4.1 10^3/uL (4.0-10.0)
[2019-09-05 11:57] LABS: HEMOGLOBIN A1c 5.9 %
[2019-09-05 12:24] LABS: ALBUMIN 3.6 GM/DL (3.2-5.2); ALT/SGPT 51 U/L (12-78); BILIRUBIN,TOTAL 0.5 MG/DL (0.2-1.0); BLOOD UREA NITROGEN 15 MG/DL (7-18); CALCIUM LEVEL 9.2 MG/DL (8.5-10.1); CARBON DIOXIDE LEVEL 29 MEQ/L (21-32); CHLORIDE LEVEL 105 MEQ/L (98-107); CHOLESTEROL LEVEL 213 MG/DL (<200); CREATININE FOR GFR 0.79 MG/DL (0.70-1.30); GLOMERULAR FILTRATION RATE > 60.0 (>60); GLUCOSE, FASTING 91 MG/DL (70-100); HDL CHOLESTEROL 50 MG/DL (>40); LDL CHOLESTEROL 142 MG/DL (<100); NON-HDL-C 163 MG/DL; POTASSIUM SERUM 4.4 MEQ/L (3.5-5.1); PROSTATIC SPECIFIC AG MONITOR 0.54 NG/ML (< 4.00); SODIUM LEVEL 139 MEQ/L (136-145); TESTOSTERONE 528 NG/DL (241-827); THYROXINE (T4) 14.1 UG/DL (4.5-12.0); TOTAL PROTEIN 7.5 GM/DL (6.4-8.2); TRIGLYCERIDES LEVEL 106 MG/DL (<150)
--- NOTE | 2019-09-06 02:47 | REP ---
Clinical: Hypertension and fatigue . Comparison: 03/04/2017, 04/06/2018 . Technique: PA and lateral. Findings: The mediastinum and cardiac silhouette are normal. The lung taylor are clear and without acute consolidation, effusion, or pneumothorax. The skeletal structures are intact and normal. Impression: 1. No acute cardiopulmonary process. Electronically Signed by Spencer Hadley MD 09/06/2019 02:38 A
--- NOTE | 2019-09-08 00:28 | ECGEPIP ---
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
== END ==
LOC: M LAB 10:50
PROVIDERS: ATTEND Family Medicine
DX: I10 Essential (primary) hypertension (principal); R53.83 Other fatigue; E03.9 Hypothyroidism, unspecified

== ENCOUNTER 2020-10-15 18:23 | Inpatient (IN) | payer OTHER ==
[~2020-10-15] VITALS: Ht 195.6 cm; Wt 111.0 kg
[2020-10-15] MEDS ORDERED: HYDR12.55 PO ×2 (18:55→22:42)
[2020-10-15] MEDS ORDERED: OLME40TA PO ×2 (18:55→22:42)
[2020-10-15] MEDS ORDERED: ACETAMINOPHEN 325 MG TAB PO ONE (19:45)
[2020-10-15] MEDS: ALBUTEROL 90 MCG/ACT 8GM HFA INHALER INH SCH (20:35)
[2020-10-15 20:37] LABS: ABG BASE EXCESS 0.8 (-2.0-2.0); ABG O2 SATURATION 96.1 % (95.0-99.0); ABG PARTIAL PRESSURE CO2 34.3 mmHg (35.0-45.0); ABG PARTIAL PRESSURE O2 76.2 mmHg (75.0-100.0); ABG STANDARD HCO3 25.2 MEQ/L (22.0-26.0); ABG TOTAL CO2 25.1 MEQ/L (22.0-29.0); ABG pH (ARTERIAL) 7.463 UNITS (7.350-7.450)
[2020-10-15 20:45] LABS: BASO % 0.2 % (0.0-1.0); EOS % 0.2 % (0.0-3.0); HEMOGLOBIN 14.8 g/dl (13.5-17.5); MEAN CORPUSCULAR HEMOGLOBIN 31.2 pg (27.0-33.0); MEAN CORPUSCULAR HGB CONC 33.6 g/dl (32.0-36.5); MEAN CORPUSCULAR VOLUME 92.6 fl (80.0-96.0); MONO # 0.5 10^3/uL (0.0-0.8); MONO % 8.6 % (2.0-8.0); NEUTROPHILS # 4.2 10^3/uL (1.5-8.5); NEUTROPHILS % 72.8 % (36.0-66.0); PLATELET COUNT, AUTOMATED 182 10^3/uL (150-450); RED BLOOD COUNT 4.75 10^6/uL (4.30-6.10); WHITE BLOOD COUNT 5.7 10^3/uL (4.0-10.0)
--- NOTE | 2020-10-15 20:59 | REPVR ---
PROCEDURE INFORMATION: Exam: XR Chest Exam date and time: 10/15/2020 7:41 PM Age: 45 years old Clinical indication: Cough and dyspnea; Additional info: Dyspnea/cough TECHNIQUE: Imaging protocol: XR of the chest Views: 1 view. COMPARISON: CR Chest, 2 view PA, Lat 09/05/2019 11:21 AM FINDINGS: Lungs: Low lung volumes. Patchy airspace consolidation in the left lung base. Possible infiltrate in the medial right lower lobe. Upper lung zones are clear. Pleural spaces: Unremarkable. No pleural effusion. No pneumothorax. Heart/Mediastinum: Unremarkable. No cardiomegaly. Bones/joints: Unremarkable. IMPRESSION: Left basilar pneumonia. Possible right lower lobe infiltrate. Electronically signed by: Maksim Garcia On 10/15/2020 20:59:46 PM
[2020-10-15 21:11] LABS: ALBUMIN 3.3 GM/DL (3.2-5.2); ALT/SGPT 45 U/L (12-78); BILIRUBIN,DIRECT 0.2 MG/DL (0.0-0.2); BILIRUBIN,TOTAL 0.5 MG/DL (0.2-1.0); BLOOD UREA NITROGEN 18 MG/DL (7-18); CARBON DIOXIDE LEVEL 30 MEQ/L (21-32); CHLORIDE LEVEL 104 MEQ/L (98-107); CREATININE FOR GFR 0.93 MG/DL (0.70-1.30); GLOMERULAR FILTRATION RATE > 60.0 (>60); GLUCOSE, FASTING 91 MG/DL (70-100); POTASSIUM SERUM 4.6 MEQ/L (3.5-5.1); SODIUM LEVEL 137 MEQ/L (136-145); TOTAL PROTEIN 7.4 GM/DL (6.4-8.2)
--- NOTE | 2020-10-15 23:16 | HPEPDOC ---
[facility] Medical History & Physical Date of Admission Oct 15, 2020 Date of Service: Oct 15, 2020 History and Physical CHIEF COMPLAINT: Shortness of breath HISTORY OF PRESENT ILLNESS: 45-year-old male history of hypertension diagnosed with Covid 19 infection on October 07 at that time he was asymptomatic but had friends coming out of town and wanted to make sure he was symptom-free however his taste returned positive. Over the ensuing days he developed a headache as well as intermittent fever. He started developing shortness of breath proximally 5 days ago which has progressively worsened and is associated with a dry nonproductive cough. He's also been having worsening muscle pain and overall weakness. He came to the [facility] because of his worsening shortness of breath. He also noticed a rash developing over his back and upper chest over the past 5 days that initially worsened but now appears to have stabilized and is very itchy. He denies abdominal symptoms denies diarrhea denies nausea or vomiting denies appetite changes denies productive sputum and denies any sick contacts at home. PAST MEDICAL/SURGICAL HISTORY: Hypertension Shoulder surgery a long time ago after skiing accident SOCIAL HISTORY: Denies alcohol use Denies tobacco use Denies illicit drug use FAMILY HISTORY: Reviewed and none contributory to this admission. No sick contacts with Covid 19 infection. ALLERGIES: Please see below. REVIEW OF SYSTEMS: 10 point review of systems complete all negative otherwise stated in HPI HOME MEDICATIONS: Please see below. PHYSICAL EXAMINATION: Constitutional: Awake and alert, in no apparent distress ENT: Sclera are clear. Mucosa is moist. Respiratory: Lungs diminished breath sounds bilaterally. No respiratory distress. No use of accessory muscles. Saturating at 94% on 2 L of oxygen by nasal cannula Cardiovascular: RRR S1 and S2 are normal, no murmur Gastrointestinal: Abdomen is soft, non distended, non tender, BS present. Musculoskeletal: No lower extremity edema. Neurologic: No focal neurological deficit. Mental Status: A&O x3, normal affect Skin: Patient has a scattered rash throughout his back and upper chest there is doesn't of small red spots each about 2 mm in diameter some of them appears to have been scratched and have scabs on them LABORATORY DATA: See below. IMAGING: See chart MICROBIOLOGY: Please see below. ASSESSMENT/PLAN 45-year-old male history of hypertension presents with worsening shortness of breath related to Covid 19 infection which has been worsening over the past week admitted for further medical management. # Hypoxic respiratory failure 2/2 Covid 19 infection: Has multiple risk factors for poor outcomes with Covid 19 infection such as obesity, hypertension. - Initial inflammatory markers were not done in the ED and are pending still. Trend inflammatory markers. IV Decadron daily. Within the window for rimdasivir which was started, discuss with ID in the am if it should be continued. Lovenox COVID prophylactic dose. O2 target 90% or better. No leukocytosis, not sure if there is a superimposed bacterial pneumonia but it seems unlikely at this time no need for antibiotics for now, follow-up pro-calcitonin. # Rash on back and upper trunk: Etiology of this rash and unclear. Atarax for itching. Consider consulting dermatology in the morning. I haven't seen this rash associated with Covid 19 infection prior, but it could be related to his Covid 19 infection. It's unlikely to be drug-induced as he is only tried NyQuil which she's had before without reaction. # Hypertension: Hold home medications blood pressure was 105/60 in the ED monitor blood pressure and resume home medications if BP rises. # DVT prophylaxis: Lovenox COVID prophylactic dose A Yousef Hospitalist Vital Signs Vital Signs Date Time Temp Pulse Resp B/P (MAP) Pulse Ox O2 Delivery O2 Flow Rate FiO2 10/15/20 22:00 90 19 112/65 (81) 95 Nasal Cannula 2.0 10/15/20 18:44 99.4 Laboratory Data Labs 24H Laboratory Tests 2 10/15/20 20:14: Blood Gas Bicarbonate Standard 25.2, Arterial Blood pH 7.463H, Arterial Blood Partial Pressure CO2 34.3L, Arterial Blood Partial Pressure O2 76.2, Arterial Blood Total CO2 25.1, Arterial Blood HCO3 24.0, Arterial Blood Base Excess 0.8, Arterial Blood Oxygen Saturation 96.1 10/15/20 20:25: Immature Granulocyte % (Auto) 0.2, Neutrophils (%) (Auto) 72.8H, Lymphocytes (%) (Auto) 18.0L, Monocytes (%) (Auto) 8.6H, Eosinophils (%) (Auto) 0.2, Basophils (%) (Auto) 0.2, Neutrophils # (Auto) 4.2, Lymphocytes # (Auto) 1.0L, Monocytes # (Auto) 0.5, Eosinophils # (Auto) 0.0, Basophils # (Auto) 0.0, Nucleated Red Blood Cells % (auto) 0.0, Anion Gap 3L, Glomerular Filtration Rate > 60.0, Lac tic Acid Level 1.2, Calcium Level 9.0, Total Bilirubin 0.5, Direct Bilirubin 0.2, Aspartate Amino Transf (AST/SGOT) 41H, Alanine Aminotransferase (ALT/SGPT) 45, Alkaline Phosphatase 77, Total Protein 7.4, Albumin 3.3, Albumin/Globulin Ratio 0.8 CBC/BMP Laboratory Tests 10/15/20 20:25 Microbiology Microbiology 10/15/20 Blood Culture, Received Pending 10/15/20 Blood Culture, Received Pending Home Medications Scheduled Hydrochlorothiazide (Hydrochlorothiazide) 12.5 Mg Tablet, 12.5 MG PO DAILY Olmesartan Medoxomil (Olmesartan Medoxomil) 40 Mg Tablet, 40 MG PO DAILY Omeprazole (Omeprazole) 20 Mg Cap, 20 MG PO DAILY Allergies Coded Allergies: No Known Drug Allergies (Verified Allergy, Unknown, 10/15/20) A-FIB/CHADSVASC A-FIB History Current/History of A-Fib/PAF?: No DARCI HILLS MD Oct 15, 2020 23:16
[2020-10-15] MEDS ORDERED: hydrOXYzine 10 MG TAB PO PRN (23:20)
[2020-10-15 23:33] LABS: INR 0.89; PROTHROMBIN TIME 12.2 SECONDS (12.5-14.3)
[2020-10-15 23:34] LABS: PARTIAL THROMBOPLASTIN TIME 28.1 SECONDS (24.2-38.5)
[2020-10-15 23:37] LABS: D-DIMER QUANT 713.24 ng/ml (<500)
[2020-10-15 23:38] LABS: C REACTIVE PROTEIN QUANTITATIV 0.87 MG/DL (0.00-0.30); FERRITIN 1124 NG/ML (26-388); LDH LACTATE DEHYDROGENASE 353 U/L (87-241); NT-PRO BNP 16 PG/ML (<125); TROPONIN I < 0.02 NG/ML (< 0.10)
[2020-10-16] VITALS (8 sets, daily range): BP systolic 108–119; BP diastolic 60–75; O2SAT 92–98
[2020-10-16] MEDS ORDERED: REMDESIVIR 200 MG in NS 250 ML IV ONE ×2
[2020-10-16] MEDS: ENOXAPARIN 100MG/1ML SYRINGE (J1650 PER 10MG) SC SCH ×3 (01:17→23:01)
[2020-10-16] MEDS ORDERED: SODIUM CHLORIDE 0.9% INJ 10 ML SYR IV ONE ×2 (02:00→19:00)
[2020-10-16 06:04] LABS: BASO % 0.2 % (0.0-1.0); EOS % 0.2 % (0.0-3.0); HEMOGLOBIN 13.7 g/dl (13.5-17.5); LYMPH % 23.2 % (24.0-44.0); MEAN CORPUSCULAR HEMOGLOBIN 31.8 pg (27.0-33.0); MEAN CORPUSCULAR HGB CONC 34.3 g/dl (32.0-36.5); MEAN CORPUSCULAR VOLUME 92.8 fl (80.0-96.0); MONO # 0.4 10^3/uL (0.0-0.8); MONO % 9.2 % (2.0-8.0); PLATELET COUNT, AUTOMATED 166 10^3/uL (150-450); RED BLOOD COUNT 4.31 10^6/uL (4.30-6.10); WHITE BLOOD COUNT 4.4 10^3/uL (4.0-10.0)
[2020-10-16 06:35] LABS: ALBUMIN 2.9 GM/DL (3.2-5.2); ALT/SGPT 37 U/L (12-78); BILIRUBIN,DIRECT 0.2 MG/DL (0.0-0.2); BILIRUBIN,TOTAL 0.4 MG/DL (0.2-1.0); BLOOD UREA NITROGEN 14 MG/DL (7-18); CALCIUM LEVEL 7.9 MG/DL (8.5-10.1); CARBON DIOXIDE LEVEL 29 MEQ/L (21-32); CHLORIDE LEVEL 104 MEQ/L (98-107); CREATININE FOR GFR 0.89 MG/DL (0.70-1.30); GLOMERULAR FILTRATION RATE > 60.0 (>60); GLUCOSE, FASTING 100 MG/DL (70-100); POTASSIUM SERUM 4.2 MEQ/L (3.5-5.1); SODIUM LEVEL 139 MEQ/L (136-145); TOTAL PROTEIN 6.5 GM/DL (6.4-8.2)
[2020-10-16] MEDS ORDERED: ACETAMINOPHEN TAB 650MG DOSE (2X325MG) PO PRN (07:00)
[2020-10-16] MEDS ORDERED: SLF 3 ML SYR IV PRN (07:15)
[2020-10-16] MEDS: dexameTHASONE 4 MG/ML 1ML VIAL (J1100 PER 1MG) IV SCH (07:25)
[2020-10-16] MEDS ORDERED: ALBUTEROL 90 MCG/ACT 8GM HFA INHALER INH PRN (07:45)
[2020-10-16] MEDS: SLF 3 ML SYR IV SCH ×2 (11:54→23:02)
--- NOTE | 2020-10-16 16:04 | IPNPDOC ---
Subjective Date Seen The patient was seen on 10/16/20. Subjective Chief Complaint/HPI Feeling well. Denies any SOB, Not needing oxygen at rest. no fever, mild dry cough, good appetite Objective Physical Examination General Exam: Positive: Alert, No Acute Distress Eye Exam: Positive: PERRLA, Conjunctiva & lids normal, EOMI; Negative: Sclera icteric ENT Exam: Positive: Atraumatic, Mucous membr. moist/pink, Pharynx Normal Neck Exam: Positive: Supple; Negative: JVD, thyromegaly Chest Exam: Positive: Diminished, Other (scaterred crackles) Heart Exam: Positive: Rate Normal, Regular Rhythm, Normal S1, Normal S2; Negative: Murmurs, Rubs Abdomen Exam: Positive: Normal bowel sounds, Soft; Negative: Tenderness, Hepatospenomegaly Extremity Exam: Negative: Clubbing, Cyanosis, Edema Skin Exam: Positive: Rash ( scattered rash throughout his back and upper chest there is doesn't of small red spots each about 2 mm in diameter some of them appears to have been scratched and have scabs on them) Neuro Exam: Positive: Normal Gait, Normal Speech, Strength at 5/5 X4 ext, Normal Tone, Cranial Nerves 3-12 NL Psych Exam: Positive: Memory Intact, Oriented x 3 Assessment /Plan Assessment 45-year-old male history of hypertension diagnosed with Covid 19 infection on October 07 at that time he was asymptomatic but had friends coming out of town and wanted to make sure he was infection free however his test returned positive. Over the ensuing days he developed a headache as well as intermittent fever. He started developing shortness of breath proximally 5 days prior to admission which has progressively worsened and is associated with a dry nonproductive cough. He's also been having worsening muscle pain and overall weakness. He came to the hospital because of his worsening shortness of breath. He also noticed a rash developing over his back and upper chest over the same time that initially worsened but now appears to have stabilized. He was admitted of rCOVID-19 infection aiwht acute hypoxic respiratory failure. Hypoxic respiratory failure 2/2 Covid 19 infection will continue dexamethasone and remdesevir oxygen supplementation, encourage proning COVID labs ordered. Lovenox BID. Rash on back and upper trunk: Etiology of this rash and unclear. Atarax for itching. Does not look like viral exanthem. could be due to moist skin from sweating with the intermittent fevers at home improving. Hypertension: Hold home medications blood pressure was 105/60 in the ED and continues t be low normal Plan/VTE VTE Prophylaxis Ordered?: Yes VS, I&O, 24H, Fishbone Vital Signs/I&O Vital Signs Date Time Temp Pulse Resp B/P (MAP) Pulse Ox O2 Delivery O2 Flow Rate FiO2 10/16/20 14:07 98.7 84 17 114/64 (81) 96 Nasal Cannula 2.0 I&O- Last 24 Hours up to 6 AM 10/16/20 07:00 Intake Total 830 ml Output Total 475 ml Balance 355 ml Laboratory Data 24H LABS Laboratory Tests 2 10/15/20 20:14: Blood Gas Bicarbonate Standard 25.2, Arterial Blood pH 7.463H, Arterial Blood Partial Pressure CO2 34.3L, Arterial Blood Partial Pressure O2 76.2, Arterial Blood Total CO2 25.1, Arterial Blood HCO3 24.0, Arterial Blood Base Excess 0.8, Arterial Blood Oxygen Saturation 96.1 10/15/20 20:24: Prothrombin Time 12.2, Prothromb Time International Ratio 0.89, Activated Partial Thromboplast Time 28.1, Fibrinogen 500H, D-Dimer, Quantitative 713.24H 10/15/20 20:25: Immature Granulocyte % (Auto) 0.2, Neutrophils (%) (Auto) 72.8H, Lymphocytes (%) (Auto) 18.0L, Monocytes (%) (Auto) 8.6H, Eosinophils (%) (Auto) 0.2, Basophils (%) (Auto) 0.2, Neutrophils # (Auto) 4.2, Lymphocytes # (Auto) 1.0L, Monocytes # (Auto) 0.5, Eosinophils # (Auto) 0.0, Basophils # (Auto) 0.0, Nucleated Red Blood Cells % (auto) 0.0, Anion Gap 3L, Glomerular Filtration Rate > 60.0, Lactic Acid Level 1.2, Calcium Level 9.0, Ferritin 1124H, Total Bilirubin 0.5, Direct Bilirubin 0.2, Aspartate Amino Transf (AST/SGOT) 41H, Alanine Ami notransferase (ALT/SGPT) 45, Alkaline Phosphatase 77, Lactate Dehydrogenase 353H, Troponin I < 0.02, C-Reactive Protein, Quantitative 0.87H, DM-Sfr-B-Type Natriuretic Peptide 16, Total Protein 7.4, Albumin 3.3, Albumin/Globulin Ratio 0.8, Procalcitonin <0.05 10/16/20 05:46: Immature Granulocyte % (Auto) 0.2, Neutrophils (%) (Auto) 67.0H, Lymphocytes (%) (Auto) 23.2L, Monocytes (%) (Auto) 9.2H, Eosinophils (%) (Auto) 0.2, Basophils (%) (Auto) 0.2, Neutrophils # (Auto) 3.0, Lymphocytes # (Auto) 1.0L, Monocytes # (Auto) 0.4, Eosinophils # (Auto) 0.0, Basophils # (Auto) 0.0, Nucleated Red Blood Cells % (auto) 0.0, Anion Gap 6L, Glomerular Filtration Rate > 60.0, Calcium Level 7.9L, Total Bilirubin 0.4, Direct Bilirubin 0.2, Aspartate Amino Transf (AST/SGOT) 23, Alanine Aminotransferase (ALT/SGPT) 37, Alkaline Phosphatase 71, Total Protein 6.5, Albumin 2.9L, Albumin/Globulin Ratio 0.8, Magnesium Level 2.0 CBC/BMP Laboratory Tests 10/15/20 20:25 10/16/20 05:46 Microbiology Microbiology 10/15/20 Blood Culture, Received Pending 10/15/20 Blood Culture, Received Pending NIKI CARLTON MD Oct 16, 2020 16:03
[2020-10-16] MEDS ORDERED: REMDESIVIR 100 MG in NS 250 ML IV ONE (18:00)
[2020-10-17] MEDS ORDERED: REMDESIVIR 100 MG in NS 250 ML IV SCH ×2
[2020-10-17] MEDS ORDERED: SODIUM CHLORIDE 0.9% INJ 10 ML SYR IV SCH (01:00)
[2020-10-17] MEDS ORDERED: CEPACOL LOZENGE PO PRN (02:05)
[2020-10-17 05:00] VITALS: BP 119/65; O2SAT 91
[2020-10-17] MEDS: SLF 3 ML SYR IV SCH (05:03)
[2020-10-17 05:52] LABS: HEMATOCRIT 39.2 % (42.0-52.0); HEMOGLOBIN 13.5 g/dl (13.5-17.5); MEAN CORPUSCULAR HEMOGLOBIN 31.4 pg (27.0-33.0); MEAN CORPUSCULAR HGB CONC 34.4 g/dl (32.0-36.5); MEAN CORPUSCULAR VOLUME 91.2 fl (80.0-96.0); PLATELET COUNT, AUTOMATED 189 10^3/uL (150-450); WHITE BLOOD COUNT 4.4 10^3/uL (4.0-10.0)
[2020-10-17 06:02] LABS: INR 0.99; PARTIAL THROMBOPLASTIN TIME 33.1 SECONDS (24.2-38.5); PROTHROMBIN TIME 13.3 SECONDS (12.5-14.3)
[2020-10-17 06:15] LABS: ALBUMIN 2.9 GM/DL (3.2-5.2); ALT/SGPT 39 U/L (12-78); BILIRUBIN,DIRECT 0.2 MG/DL (0.0-0.2); BILIRUBIN,TOTAL 0.5 MG/DL (0.2-1.0); BLOOD UREA NITROGEN 17 MG/DL (7-18); CALCIUM LEVEL 8.3 MG/DL (8.5-10.1); CARBON DIOXIDE LEVEL 26 MEQ/L (21-32); CHLORIDE LEVEL 107 MEQ/L (98-107); CPK CREATINE PHOSPHOKINASE 340 U/L (39-308); CREATININE FOR GFR 0.82 MG/DL (0.70-1.30); FERRITIN 1022 NG/ML (26-388); GLOMERULAR FILTRATION RATE > 60.0 (>60); GLUCOSE, FASTING 106 MG/DL (70-100); LDH LACTATE DEHYDROGENASE 259 U/L (87-241); MAGNESIUM LEVEL 2.1 MG/DL (1.8-2.4); NT-PRO BNP 80 PG/ML (<125); SODIUM LEVEL 140 MEQ/L (136-145); TOTAL PROTEIN 6.5 GM/DL (6.4-8.2); TROPONIN I < 0.02 NG/ML (< 0.10)
[2020-10-17 06:47] LABS: ATYPICAL LYMPH 3 % (0-5); LYMPHOCYTES 19 % (16-44); MONOCYTES 10 % (0-5); NEUTROPHILS 68 % (28-66)
[2020-10-17 06:48] LABS: PLATELET ESTIMATE NORMAL (NORMAL)
[2020-10-17] MEDS: dexameTHASONE 4 MG/ML 1ML VIAL (J1100 PER 1MG) IV SCH (09:31)
[2020-10-17 09:44] VITALS: O2SAT 94
[2020-10-17 12:00] VITALS: BP 124/76
[2020-10-17] MEDS ORDERED: REMDESIVIR 100 MG in NS 250 ML IV ONE (12:00)
[2020-10-17] MEDS: ENOXAPARIN 100MG/1ML SYRINGE (J1650 PER 10MG) SC SCH (12:10)
[2020-10-17] MEDS ORDERED: DEXA6TAB PO (12:14)
[2020-10-17] MEDS ORDERED: SODIUM CHLORIDE 0.9% INJ 10 ML SYR IV ONE (13:00)
--- NOTE | 2020-10-17 17:48 | DS.PDOC ---
Discharge Summary General Date of Admission Oct 15, 2020 at 23:02 Date of Discharge 10/17/20 Discharge Summary PROCEDURES PERFORMED DURING STAY: [None]. DISCHARGE DIAGNOSES: COVID- 19 Pneumonia Acute hypoxic respiratory failure COMPLICATIONS/CHIEF COMPLAINT: Hypoxia,Pneumonia Due To Covid. HOSPITAL COURSE: 45-year-old male history of hypertension diagnosed with Covid 19 infection on October 07 at that time he was asymptomatic but had friends coming out of town and wanted to make sure he was infection free however his test returned positive. Over the ensuing days he developed a headache as well as inte rmittent fever. He started developing shortness of breath proximally 5 days prior to admission which has progressively worsened and is associated with a dry nonproductive cough. He's also been having worsening muscle pain and overall weakness. He came to the hospital because of his worsening shortness of breath. He also noticed a rash developing over his back and upper chest over the same time that initially worsened but now appears to have stabilized. He was admitted of rCOVID-19 infection aiwht acute hypoxic respiratory failure. Hypoxic respiratory failure 2/2 Covid 19 infection now hypoxia has resolved will finish 5 days of dexamethasone will need 20 days of quarantine from the day of positive test as he was hypoxic He has to be on quarantine till 10/27/20 Rash on back and upper trunk: Etiology of this rash and unclear. Does not look like viral exanthem. could be due to moist skin from sweating with the intermittent fevers at home improving. Hypertension: stop olmesartan for now restart hctz. Positive blood culture 1/2 bottles growing gram positive cocci in clusters likely contaminant. Follow up final cultures DISCHARGE MEDICATIONS: Please see below. ALLERGIES: Please see below. PHYSICAL EXAMINATION ON DISCHARGE: VITAL SIGNS: Please see below. General Exam: Positive: Alert, No Acute Distress Eye Exam: Positive: PERRLA, Conjunctiva & lids normal, EOMI; Negative: Sclera icteric ENT Exam: Positive: Atraumatic, Mucous membr. moist/pink, Pharynx Normal Neck Exam: Positive: Supple; Negative: JVD, thyromegaly Chest Exam: Positive: Diminished, Other (scaterred crackles) Heart Exam: Positive: Rate Normal, Regular Rhythm, Normal S1, Normal S2; Negative: Murmurs, Rubs Abdomen Exam: Positive: Normal bowel sounds, Soft; Negative: Tenderness, Hepatospenomegaly Extremity Exam: Negative: Clubbing, Cyanosis, Edema Skin Exam: Positive: Rash ( scattered rash throughout his back and upper chest there is doesn't of small red spots each about 2 mm in diameter some of them appears to have been scratched and have scabs on them) Neuro Exam: Positive: Normal Gait, Normal Speech, Strength at 5/5 X4 ext, Normal Tone, Cranial Nerves 3-12 NL LABORATORY DATA: Please see below. IMAGING: CXR: Lungs: Low lung volumes. Patchy airspace consolidation in the left lung base. Possible infiltrate in the medial right lower lobe. Upper lung zones are clear. Pleural spaces: Unremarkable. No pleural effusion. No pneumothorax. Heart/Mediastinum: Unremarkable. No cardiomegaly. Bones/joints: Unremarkable. IMPRESSION: Left basilar pneumonia. Possible right lower lobe infiltrate. ACTIVITY: [As tolerated]. DIET: as tolerated DISPOSITION: 01 Home, Self-Care. DISCHARGE INSTRUCTIONS: PMD in 7 to 10 days Follow up Final Blood Culture DISCHARGE CONDITION: [Stable]. TIME SPENT ON DISCHARGE: 35 minutes. Vital Signs/I&Os Vital Signs Date Time Temp Pulse Resp B/P (MAP) Pulse Ox O2 Delivery O2 Flow Rate FiO2 10/17/20 12:00 99.5 84 18 124/76 (92) 93 Room Air 10/16/20 14:07 2.0 I&O- Last 24 Hours up to 6 AM 10/17/20 07:00 Intake Total 4100 ml Output Total 800 ml Balance 3300 ml Laboratory Data Labs 24H Laboratory Tests 2 10/17/20 05:37: Neutrophils (%) (Auto) , Nucleated Red Blood Cells % (auto) 0.0, Neutrophils 68H, Lymphocytes (Manual) 19, Monocytes (Manual) 10H, Atypical Lymphocytes 3, Red Blood Cell Morphology NORMAL, Platelet Estimate NORMAL, Prothrombin Time 13.3, Prothromb Time International Ratio 0.99, Activated Partial Thromboplast Time 33.1, Fibrinogen 453H, Anion Gap 7L, Glomerular Filtration Rate > 60.0, Calcium Level 8.3L, Magnesium Level 2.1, Ferritin 1022H, Total Bilirubin 0.5, Direct Bilirubin 0.2, Aspartate Amino Transf (AST/SGOT) 28, Alanine Aminotransferase (ALT/SGPT) 39, Alkaline Phosphatase 69, Lactate Dehydrogenase 259H, Total Creatine Kinase 340H, Troponin I < 0.02, [id number]-Gvu-[id number]-Type Natriuretic Peptide 80, Total Protein 6.5, Albumin 2.9L, Albumin/Globulin Ratio 0.8, Procalcitonin <0.05 CBC/BMP Laboratory Tests 10/17/20 05:37 Microbiology Microbiology 10/15/20 Blood Culture - Preliminary, Resulted No growth after 24 hours . All specim... 10/15/20 Blood Culture - Preliminary, Resulted Discharge Medications Scheduled Dexamethasone (Dexamethasone) 6 Mg Tablet, 1 TAB PO DAILY Hydrochlorothiazide (Hydrochlorothiazide) 12.5 Mg Tablet, 12.5 MG PO DAILY, (Reported) Omeprazole (Omeprazole) 20 Mg Cap, 20 MG PO DAILY, (Reported) Allergies Coded Allergies: No Known Drug Allergies (Verified Allergy, Unknown, 10/15/20) NIKI CARLTON MD Oct 17, 2020 17:48
== END 2020-10-17 14:26 | disposition home or self-care (01) | DRG 137 ==
LOC: M ED 18:23 → M ED INP 23:02 → ENRESERV 23:45 → M 4MAIN 10-16 00:38
PROVIDERS: ADMIT Family Medicine; ATTEND Internal Medicine Nephrology
PROC: XW033E5 Introduction of Remdesivir Anti-infective into Peripheral Vein, Percutaneous Approach, New Technology Group 5 (ICD-10-PCS; principal; 2020-10-15)
PROC: 3E0333Z Introduction of Anti-inflammatory into Peripheral Vein, Percutaneous Approach (ICD-10-PCS; 2020-10-15)
DX: U07.1 COVID-19 (principal); J96.01 Acute respiratory failure with hypoxia; R21 Rash and other nonspecific skin eruption; I10 Essential (primary) hypertension; E66.9 Obesity, unspecified; Z68.29 Body mass index [BMI] 29.0-29.9, adult; Z79.899 Other long term (current) drug therapy

== ENCOUNTER → 2020-10-28 | Outpatient (REF) | payer OTHER ==
[~2020-10-28] MED LIST changes: +DEXA6TAB PO; +HYDR12.55 PO; +OLME40TA PO
== END ==
LOC: M LAB REF 15:34
PROVIDERS: ATTEND Physician Assistant
DX: L57.0 Actinic keratosis (principal); L57.8 Other skin changes due to chronic exposure to nonionizing radiation

== ENCOUNTER 2020-11-12 11:08 | Emergency (ER) | payer OTHER ==
[~2020-11-12] VITALS: Ht 195.6 cm; Wt 110.9 kg
[2020-11-12] MEDS ORDERED: OLME20TA2 (11:18)
[2020-11-12] MEDS ORDERED: OMEP-218 (11:18)
[2020-11-12] MEDS ORDERED: LIDOCAINE 2% MDV 20ML VIAL SC ONE (11:45)
[2020-11-12 12:15] VITALS: BP 141/88
[2020-11-12] MEDS ORDERED: BOOSTRIX/ADACEL VACCINE (DIPHTH/PERTUSS/ACELL/TETANUS) 0.5ML SYR IM ONE (12:15)
== END 2020-11-12 12:36 | disposition home or self-care (01) ==
LOC: M ED 11:08
DX: S61.210A Laceration without foreign body of right index finger without damage to nail, initial encounter (principal); W26.8XXA Contact with other sharp object(s), not elsewhere classified, initial encounter; Y92.89 Other specified places as the place of occurrence of the external cause; Y99.0 Civilian activity done for income or pay; K21.9 Gastro-esophageal reflux disease without esophagitis; Z79.899 Other long term (current) drug therapy

== ENCOUNTER → 2021-02-13 | Outpatient (CLI) | payer OTHER ==
[~2021-02-13] MED LIST changes: +OLME20TA2; +OMEP-218; +OMEP20TA2 PO; -OMEP20TA9 PO
[2021-02-13 08:20] LABS: HEMATOCRIT 46.4 % (42.0-52.0); HEMOGLOBIN 15.8 g/dl (13.5-17.5); MEAN CORPUSCULAR HEMOGLOBIN 32.2 pg (27.0-33.0); MEAN CORPUSCULAR HGB CONC 34.1 g/dl (32.0-36.5); MEAN CORPUSCULAR VOLUME 94.7 fl (80.0-96.0); PLATELET COUNT, AUTOMATED 242 10^3/uL (150-450); WHITE BLOOD COUNT 4.6 10^3/uL (4.0-10.0)
[2021-02-13 08:44] LABS: HEMOGLOBIN A1c 5.4 %
[2021-02-13 08:57] LABS: ALBUMIN 3.8 GM/DL (3.2-5.2); ALT/SGPT 44 U/L (12-78); BILIRUBIN,TOTAL 0.5 MG/DL (0.2-1.0); BLOOD UREA NITROGEN 14 MG/DL (7-18); CALCIUM LEVEL 9.9 MG/DL (8.5-10.1); CARBON DIOXIDE LEVEL 28 MEQ/L (21-32); CHLORIDE LEVEL 106 MEQ/L (98-107); CHOLESTEROL LEVEL 264 MG/DL (<200); CHOLESTEROL RISK RATIO 4.981 (<5); CREATININE FOR GFR 0.92 MG/DL (0.70-1.30); GLOMERULAR FILTRATION RATE > 60.0 (>60); GLUCOSE, FASTING 111 MG/DL (70-100); HDL CHOLESTEROL 53 MG/DL (>40); LDL CHOLESTEROL 183 MG/DL (<100); NON-HDL-C 211 MG/DL; POTASSIUM SERUM 4.6 MEQ/L (3.5-5.1); PROSTATIC SPECIFIC AG MONITOR 0.52 NG/ML (< 4.00); SODIUM LEVEL 141 MEQ/L (136-145); TRIGLYCERIDES LEVEL 142 MG/DL (<150)
[2021-02-13 11:17] LABS: TOTAL 25(OH) VITAMIN D 26.8 NG/ML (30.0-100.0)
[2021-02-13 11:23] LABS: TESTOSTERONE 646 NG/DL (241-827)
== END ==
LOC: M LAB 07:28
PROVIDERS: ATTEND Family Medicine
DX: R53.83 Other fatigue (principal); I10 Essential (primary) hypertension; E03.9 Hypothyroidism, unspecified

== ENCOUNTER → 2022-02-11 | Outpatient (CLI) | payer OTHER ==
[~2022-02-11] MED LIST changes: +LOSA50TA28 PO; -LOSA50TA88 PO; +OMEP-173; -OMEP-218
[2022-02-11 10:24] LABS: HEMATOCRIT 46.6 % (42.0-52.0); MEAN CORPUSCULAR HEMOGLOBIN 31.7 pg (27.0-33.0); MEAN CORPUSCULAR HGB CONC 34.3 g/dl (32.0-36.5); MEAN CORPUSCULAR VOLUME 92.3 fl (80.0-96.0); PLATELET COUNT, AUTOMATED 241 10^3/uL (150-450); RED BLOOD COUNT 5.05 10^6/uL (4.30-6.10); WHITE BLOOD COUNT 4.4 10^3/uL (4.0-10.0)
[2022-02-11 11:08] LABS: ALBUMIN 3.8 GM/DL (3.2-5.2); ALT/SGPT 49 U/L (12-78); BILIRUBIN,TOTAL 0.5 MG/DL (0.2-1.0); BLOOD UREA NITROGEN 15 MG/DL (7-18); CALCIUM LEVEL 9.8 MG/DL (8.5-10.1); CARBON DIOXIDE LEVEL 28 MEQ/L (21-32); CHLORIDE LEVEL 104 MEQ/L (98-107); CHOLESTEROL LEVEL 228 MG/DL (<200); CHOLESTEROL RISK RATIO 3.931 (<5); CREATININE FOR GFR 0.88 MG/DL (0.70-1.30); GLOMERULAR FILTRATION RATE > 60.0 (>60); GLUCOSE, FASTING 103 MG/DL (70-100); HDL CHOLESTEROL 58 MG/DL (>40); LDL CHOLESTEROL 139 MG/DL (<100); NON-HDL-C 170 MG/DL; POTASSIUM SERUM 4.5 MEQ/L (3.5-5.1); PROSTATIC SPECIFIC AG MONITOR 0.56 NG/ML (< 4.00); SODIUM LEVEL 139 MEQ/L (136-145); TOTAL PROTEIN 7.8 GM/DL (6.4-8.2); TRIGLYCERIDES LEVEL 155 MG/DL (<150)
[2022-02-11 11:13] LABS: TOTAL 25(OH) VITAMIN D 34.5 NG/ML (30.0-100.0)
[2022-02-11 11:14] LABS: TESTOSTERONE 533 NG/DL (241-827)
[2022-02-11 11:55] LABS: HEMOGLOBIN A1c 5.6 %
== END ==
LOC: M LAB 08:30
PROVIDERS: ATTEND Family Medicine
DX: I10 Essential (primary) hypertension (principal); R53.83 Other fatigue; E03.9 Hypothyroidism, unspecified

== ENCOUNTER → 2022-10-22 | Outpatient (CLI) | payer OTHER ==
[2022-10-22 13:56] LABS: HEMOGLOBIN 15.5 g/dl (13.5-17.5); MEAN CORPUSCULAR HEMOGLOBIN 32.2 pg (27.0-33.0); MEAN CORPUSCULAR HGB CONC 33.7 g/dl (32.0-36.5); MEAN CORPUSCULAR VOLUME 95.4 fl (80.0-96.0); PLATELET COUNT, AUTOMATED 254 10^3/uL (150-450); RED BLOOD COUNT 4.82 10^6/uL (4.30-6.10); WHITE BLOOD COUNT 4.6 10^3/uL (4.0-10.0)
[2022-10-22 14:05] LABS: ALBUMIN 3.8 G/DL (3.2-5.2); ALKALINE PHOSPHATASE 66 U/L (46-116); ALT/SGPT 72 U/L (7.0-40); AST/SGOT 31 U/L (<34); BILIRUBIN,TOTAL 1.1 MG/DL (0.3-1.2); BLOOD UREA NITROGEN 18 MG/DL (9-23); CALCIUM LEVEL 9.5 MG/DL (8.5-10.1); CARBON DIOXIDE LEVEL 28 MMOL/L (20-31); CHLORIDE LEVEL 105 MMOL/L (98-107); CHOLESTEROL LEVEL 254 MG/DL (<200); CHOLESTEROL RISK RATIO 5.17 (<5); CREATININE FOR GFR 0.84 MG/DL (0.70-1.30); GLOMERULAR FILTRATION RATE > 60.0 (>60); GLUCOSE, FASTING 98 MG/DL (60-100); HDL CHOLESTEROL 49.1 MG/DL (>40); LDL CHOLESTEROL 185.7 MG/DL (<100); NON-HDL-C 204.9 MG/DL; SODIUM LEVEL 139 MMOL/L (136-145); THYROID STIMULATING HORMONE 1.342 uIU/ML (0.55-4.78); TOTAL 25(OH) VITAMIN D 28.8 NG/ML (20.0-100.0); TOTAL PROTEIN 7.2 G/DL (5.7-8.2); TRIGLYCERIDES LEVEL 96 MG/DL (<150)
[2022-10-22 14:07] LABS: INR 0.96
[2022-10-22 14:18] LABS: HEMOGLOBIN A1c 5.6 % (4.0-6.0)
== END ==
LOC: M LABDRWAD 09:33
PROVIDERS: ATTEND Family Medicine
DX: I10 Essential (primary) hypertension (principal); R53.83 Other fatigue; E03.9 Hypothyroidism, unspecified

== ENCOUNTER → 2022-12-05 | Outpatient (CLI) | payer OTHER ==
[2022-12-05 09:49] LABS: URIC ACID 7.7 MG/DL (3.7-9.2)
[2022-12-05 09:54] LABS: RHEUMATOID FACTOR QUANT 3.6 IU/ML (<14)
== END ==
LOC: M RAD 08:39
PROVIDERS: ATTEND Family Medicine
DX: R53.83 Other fatigue (principal); M06.9 Rheumatoid arthritis, unspecified; M17.0 Bilateral primary osteoarthritis of knee; M76.891 Other specified enthesopathies of right lower limb, excluding foot; M76.892 Other specified enthesopathies of left lower limb, excluding foot

== ENCOUNTER → 2023-08-06 | Outpatient (CLI) | payer OTHER ==
[~2023-08-06] MED LIST changes: -OLME20TA2; +OLME20TA50
[2023-08-06 07:15] LABS: HEMATOCRIT 43.6 % (42.0-52.0); HEMOGLOBIN 14.9 g/dl (13.5-17.5); MEAN CORPUSCULAR HEMOGLOBIN 32.3 pg (27.0-33.0); MEAN CORPUSCULAR HGB CONC 34.2 g/dl (32.0-36.5); MEAN CORPUSCULAR VOLUME 94.6 fl (80.0-96.0); PLATELET COUNT, AUTOMATED 215 10^3/uL (150-450); RED BLOOD COUNT 4.61 10^6/uL (4.30-6.10); WHITE BLOOD COUNT 4.6 10^3/uL (4.0-10.0)
[2023-08-06 07:41] LABS: URIC ACID 6.2 MG/DL (3.7-9.2)
[2023-08-06 07:44] LABS: ALBUMIN 3.5 G/DL (3.2-5.2); ALKALINE PHOSPHATASE 73 U/L (46-116); ALT/SGPT 77 U/L (7.0-40); AST/SGOT 28 U/L (<34); BILIRUBIN,TOTAL 0.4 MG/DL (0.3-1.2); BLOOD UREA NITROGEN 19 MG/DL (9-23); CARBON DIOXIDE LEVEL 27 MMOL/L (20-31); CHLORIDE LEVEL 109 MMOL/L (98-107); CHOLESTEROL LEVEL 233 MG/DL (<200); CHOLESTEROL RISK RATIO 4.16 (<5); CREATININE FOR GFR 0.76 MG/DL (0.70-1.30); GLOMERULAR FILTRATION RATE > 60.0 (>60); GLUCOSE, FASTING 99 MG/DL (60-100); HDL CHOLESTEROL 55.9 MG/DL (>40); LDL CHOLESTEROL 158.3 MG/DL (<100); NON-HDL-C 177.1 MG/DL; POTASSIUM SERUM 4.6 MMOL/L (3.5-5.1); PROSTATIC SPECIFIC AG MONITOR 0.39 NG/ML (< 4.00); SODIUM LEVEL 142 MMOL/L (136-145); THYROID STIMULATING HORMONE 2.289 uIU/ML (0.55-4.78); TOTAL 25(OH) VITAMIN D 33.3 NG/ML (20.0-100.0); TRIGLYCERIDES LEVEL 94 MG/DL (<150); VITAMIN B12 LEVEL 907 PG/ML (211-911)
[2023-08-06 08:14] LABS: HEMOGLOBIN A1c 5.5 % (4.0-6.0)
[2023-08-06 12:30] LABS: TESTOSTERONE 528 NG/DL (241-827)
== END ==
LOC: M LAB 06:26
PROVIDERS: ATTEND Family Medicine
DX: I10 Essential (primary) hypertension (principal); R53.83 Other fatigue; E03.9 Hypothyroidism, unspecified

== ENCOUNTER → 2023-12-01 | Outpatient (CLI) | payer OTHER ==
[2023-12-01 07:33] LABS: HEMATOCRIT 44.1 % (42.0-52.0); HEMOGLOBIN 15.3 g/dl (13.5-17.5); MEAN CORPUSCULAR HEMOGLOBIN 32.5 pg (27.0-33.0); MEAN CORPUSCULAR HGB CONC 34.7 g/dl (32.0-36.5); MEAN CORPUSCULAR VOLUME 93.6 fl (80.0-96.0); PLATELET COUNT, AUTOMATED 265 10^3/uL (150-450); RED BLOOD COUNT 4.71 10^6/uL (4.30-6.10); WHITE BLOOD COUNT 4.8 10^3/uL (4.0-10.0)
[2023-12-01 07:43] LABS: HEMOGLOBIN A1c 5.2 % (4.0-6.0)
[2023-12-01 08:02] LABS: ALBUMIN 3.7 G/DL (3.2-5.2); ALKALINE PHOSPHATASE 73 U/L (46-116); ALT/SGPT 71 U/L (7.0-40); AST/SGOT 30 U/L (<34); BILIRUBIN,TOTAL 0.5 MG/DL (0.3-1.2); BLOOD UREA NITROGEN 18 MG/DL (9-23); CALCIUM LEVEL 9.2 MG/DL (8.5-10.1); CARBON DIOXIDE LEVEL 26 MMOL/L (20-31); CHLORIDE LEVEL 105 MMOL/L (98-107); CHOLESTEROL LEVEL 232 MG/DL (<200); CHOLESTEROL RISK RATIO 4.46 (<5); CREATININE FOR GFR 0.87 MG/DL (0.70-1.30); GLOMERULAR FILTRATION RATE > 60.0 (>60); GLUCOSE, FASTING 98 MG/DL (60-100); LDL CHOLESTEROL 163.2 MG/DL (<100); POTASSIUM SERUM 4.5 MMOL/L (3.5-5.1); PROSTATIC SPECIFIC AG MONITOR 0.43 NG/ML (< 4.00); SODIUM LEVEL 139 MMOL/L (136-145); TOTAL PROTEIN 7.1 G/DL (5.7-8.2); TRIGLYCERIDES LEVEL 84 MG/DL (<150)
[2023-12-01 08:03] LABS: THYROID STIMULATING HORMONE 1.521 uIU/ML (0.55-4.78)
[2023-12-01 08:04] LABS: TESTOSTERONE 547 NG/DL (241-827)
== END ==
LOC: M LAB 06:45
PROVIDERS: ATTEND Family Medicine
DX: I10 Essential (primary) hypertension (principal); R53.83 Other fatigue; E03.9 Hypothyroidism, unspecified

== ENCOUNTER → 2024-10-20 | Outpatient (CLI) | payer OTHER ==
[~2024-10-20] MED LIST changes: +OMEP-611 PO; -OMEP20TA2 PO
[2024-10-20 07:06] LABS: HEMOGLOBIN 14.9 g/dl (13.5-17.5); MEAN CORPUSCULAR HEMOGLOBIN 32.4 pg (27.0-33.0); MEAN CORPUSCULAR HGB CONC 34.7 g/dl (32.0-36.5); MEAN CORPUSCULAR VOLUME 93.5 fl (80.0-96.0); PLATELET COUNT, AUTOMATED 258 10^3/uL (150-450); WHITE BLOOD COUNT 4.5 10^3/uL (4.0-10.0)
[2024-10-20 07:36] LABS: ALBUMIN 3.5 G/DL (3.2-5.2); ALKALINE PHOSPHATASE 78 U/L (40-129); ALT/SGPT 30 U/L (7.0-40); AST/SGOT 11 U/L (<34); BILIRUBIN,TOTAL 0.4 MG/DL (0.3-1.2); BLOOD UREA NITROGEN 26 MG/DL (9-23); CARBON DIOXIDE LEVEL 25 MMOL/L (20-31); CHLORIDE LEVEL 108 MMOL/L (98-107); CHOLESTEROL LEVEL 244 MG/DL (<200); CHOLESTEROL RISK RATIO 4.89 (<5); CREATININE FOR GFR 0.85 MG/DL (0.70-1.30); GLOMERULAR FILTRATION RATE > 60.0 (>60); GLUCOSE, FASTING 101 MG/DL (60-100); HDL CHOLESTEROL 49.8 MG/DL (>40); LDL CHOLESTEROL 159.6 MG/DL (<100); NON-HDL-C 194.2 MG/DL; POTASSIUM SERUM 4.5 MMOL/L (3.5-5.1); SODIUM LEVEL 140 MMOL/L (136-145); TESTOSTERONE 516 NG/DL (241-827); THYROID STIMULATING HORMONE 1.793 uIU/ML (0.55-4.78); TOTAL 25(OH) VITAMIN D 44.7 NG/ML (20.0-100.0); TOTAL PROTEIN 7.4 G/DL (5.7-8.2); TRIGLYCERIDES LEVEL 173 MG/DL (<150)
[2024-10-20 07:41] LABS: HEMOGLOBIN A1c 5.3 % (4.0-6.0)
== END ==
LOC: M LAB 06:28
PROVIDERS: ATTEND Family Medicine
DX: I10 Essential (primary) hypertension (principal); E11.9 Type 2 diabetes mellitus without complications; R53.83 Other fatigue